=== PATIENT | female | born 1965 | race Caucasian/White ===

== ENCOUNTER 2017-05-03 19:57 | Emergency (ER) | payer MEDICAID ==
[~2017-05-03] VITALS: Ht 162.6 cm; Wt 93.8 kg
[2017-05-03] MEDS ORDERED: ZIPRASIDONE 20 MG INJ IM ONE ×2 (20:16→20:30)
[2017-05-03] MEDS ORDERED: DIPHENHYDRAMINE 50 MG/ML, 1ML ONE (20:16)
[2017-05-03] MEDS ORDERED: DIPHENHYDRAMINE 50 MG/ML, 1ML IM ONE (21:00)
[2017-05-03 21:39] LABS: BLOOD UREA NITROGEN 10 mg/dL (7-18)
[2017-05-03 21:45] LABS: ACETAMINOPHEN < 2 mcg/mL (10-30)
[2017-05-03 22:40] VITALS: BP 135/89
== END 2017-05-04 00:14 | disposition home or self-care (01) ==
LOC: ED 22:40
DX: S52.602A Unspecified fracture of lower end of left ulna, initial encounter for closed fracture (principal); F19.950 Other psychoactive substance use, unspecified with psychoactive substance-induced psychotic disorder with delusions; G31.2 Degeneration of nervous system due to alcohol; W17.89XA Other fall from one level to another, initial encounter; Y93.89 Activity, other specified; Y99.8 Other external cause status; Y92.009 Unspecified place in unspecified non-institutional (private) residence as the place of occurrence of the external cause
CPT/HCPCS: 29105; 36415; 70450; 73090; 80048; 80307; 80329; 82040; 84703; 85025; 96372; 99285; J1200; J3486; G0480

== ENCOUNTER 2017-08-29 09:08 | Observation (INO) | payer MEDICAID ==
[~2017-08-29] VITALS: Ht 162.6 cm; Wt 92.1 kg
[2017-08-29] MEDS ORDERED: SODIUM CHLORIDE FLUSH 10ML SYR IVF ONE (09:30)
[2017-08-29] MEDS ORDERED: ASPIRIN 81 MG TABLET CHEW PO ONE (09:30)
[2017-08-29] MEDS ORDERED: ONDANSETRON 2MG/ML, 2ML IVPush ONE (09:30)
[2017-08-29] MEDS ORDERED: LORazepam 2 MG/ML, 1ML IVPush ONE (09:30)
[2017-08-29] MEDS ORDERED: MORPHINE SULFATE 4 MG/ML, 1ML IVPush ONE (09:30)
[2017-08-29] MEDS ORDERED: PLEASE ENTER ALLERGIES MC SCH ×2 (09:30)
[2017-08-29] MEDS ORDERED: NITROGLYCERIN SINGLE TAB 0.4 MG SL ONE (09:41)
[2017-08-29] MEDS ORDERED: morphine SULFATE 10 MG/ML, 1ML ONE (09:42)
[2017-08-29] MEDS ORDERED: ONDANSETRON 2MG/ML, 2ML ONE (09:42)
[2017-08-29] MEDS ORDERED: LORazepam 2 MG/ML, 1ML ONE (09:43)
[2017-08-29] MEDS: NITROGLYCERIN SINGLE TAB 0.4 MG SL PRN ×3 (09:44→09:56)
[2017-08-29] MEDS ORDERED: ASPIRIN 81 MG TABLET CHEW ONE (09:47)
[2017-08-29 09:53] LABS: HEMATOCRIT 41.5 % (34.6-47.8); HEMOGLOBIN 13.9 g/dL (11.7-16.4); WHITE BLOOD COUNT 9.7 x10^3/uL (3.4-10)
[2017-08-29 10:01] LABS: ASPARTATE AMINO TRANSFERASE 41 U/L (15-37); BLOOD UREA NITROGEN 13 mg/dL (7-18)
[2017-08-29 10:09] LABS: IS PT STATUS REG ER OR PRE ER? YES
[2017-08-29] MEDS ORDERED: HYDR25TA11 PO (10:26)
[2017-08-29] MEDS ORDERED: SPIR25TA3 PO (10:26)
[2017-08-29] MEDS ORDERED: PROP20TA PO (10:26)
[2017-08-29] MEDS ORDERED: PARO10TA56 PO (10:26)
[2017-08-29] MEDS ORDERED: SODIUM CHLORIDE FLUSH 10ML SYR IVF PRN (11:30)
[2017-08-29] MEDS ORDERED: POTASSIUM CHLORIDE 20 MEQ, MAGNESIUM SULFATE 2 GM, THIAMINE 100 MG, MVI ADULT 10 ML, FO... IV SCH (11:41)
[2017-08-29] MEDS ORDERED: DOCUSATE 100 MG CAPSULE PO PRN (12:00)
[2017-08-29] MEDS ORDERED: ENALAPRILAT 1.25 MG/ML, 2ML IVPush PRN (12:00)
[2017-08-29] MEDS ORDERED: ONDANSETRON 2MG/ML, 2ML IVPush PRN (12:00)
[2017-08-29] MEDS ORDERED: morphine SULFATE 10 MG/ML, 1ML IVPush PRN (12:00)
[2017-08-29] MEDS ORDERED: BISACODYL 10 MG SUPP PR PRN (12:00)
[2017-08-29] MEDS ORDERED: ENOXAPARIN 40 MG/0.4 ML SQ SCH (12:00)
[2017-08-29] MEDS ORDERED: HYDROcodone/APAP 5/325 TABLET PO PRN (12:00)
[2017-08-29] MEDS ORDERED: LORazepam 2 MG/ML, 1ML IVPush PRN (12:00)
[2017-08-29] MEDS ORDERED: LABETALOL 5MG/ML, 20ML IVPush PRN (12:00)
[2017-08-29] MEDS ORDERED: POLYETHYLENE GLYCOL 17 GM PACKET PO PRN (12:00)
[2017-08-29] MEDS ORDERED: ACETAMINOPHEN 325 MG TABLET PO PRN (12:00)
[2017-08-29] MEDS ORDERED: PROPRANOLOL MC SCH (14:00)
[2017-08-29] MEDS ORDERED: SPIRONOLACTONE MC SCH (14:00)
[2017-08-29 14:18] VITALS: BP 175/118
[2017-08-29 15:25] LABS: IS PT STATUS REG ER OR PRE ER? NO
[2017-08-29 16:02] VITALS: BP 171/127
[2017-08-29] MEDS: BACLOFEN 10 MG TABLET PO SCH ×3 (16:18→20:03)
[2017-08-29 17:43] VITALS: BP 174/117
[2017-08-29 18:27] VITALS: BP 128/83
[2017-08-29] MEDS: PROPRANOLOL 20 MG TABLET PO SCH (20:04)
[2017-08-29] MEDS ORDERED: PROPRANOLOL 20 MG TABLET PO SCH (21:00)
[2017-08-29 21:46] LABS: IS PT STATUS REG ER OR PRE ER? NO
[2017-08-30 00:31] VITALS: BP 121/83
[2017-08-30] MEDS ORDERED: FLU VACC QS2017-18 (36MOS+) UP/PF 0.5 ML IM-VACC ONE (07:00)
[2017-08-30] MEDS ORDERED: REGADENOSON 0.4 MG/5 ML SYRINGE ONE (08:11)
[2017-08-30 08:29] VITALS: BP 164/96
[2017-08-30] MEDS ORDERED: SPIRONOLACTONE 25 MG TABLET PO SCH ×2 (09:00)
[2017-08-30] MEDS ORDERED: PAROXETINE 10 MG TABLET PO SCH (09:00)
[2017-08-30] MEDS: PROPRANOLOL 20 MG TABLET PO SCH (10:41)
[2017-08-30] MEDS: BACLOFEN 10 MG TABLET PO SCH (10:41)
[2017-08-30 14:02] VITALS: BP 142/94
== END 2017-08-30 16:25 | disposition home or self-care (01) ==
LOC: ED 10:45 → INTOOBSV 11:12 → EDIP 11:12 → 5SO 13:30
PROVIDERS: ADMIT Family Medicine; ATTEND Family Medicine
DX: R07.89 Other chest pain (principal); I11.9 Hypertensive heart disease without heart failure; F10.239 Alcohol dependence with withdrawal, unspecified; R74.0 Nonspecific elevation of levels of transaminase and lactic acid dehydrogenase [LDH]; Z82.49 Family history of ischemic heart disease and other diseases of the circulatory system; Z83.3 Family history of diabetes mellitus; Z87.891 Personal history of nicotine dependence; Z90.710 Acquired absence of both cervix and uterus
CPT/HCPCS: 36415; 71010; 78452; 80053; 84484; 85025; 85379; 93005; 93017; 93306; 96365; 96366; 96372; 96375; 99285; A9502; C9898; G0378; J1650; J2060; J2785; J3411; J3475; J3480; Q0177; J7042

== ENCOUNTER 2018-06-19 18:00 | Emergency (ER) | payer MEDICAID ==
[~2018-06-19] VITALS: Ht 162.6 cm; Wt 91.2 kg
[~2018-06-19 18:00] MED LIST: HYDR25TA11 PO; PARO10TA56 PO; PROP20TA PO; SPIR25TA5 PO
[2018-06-19] MEDS ORDERED: CEFAZOLIN PMX 1GM/50ML 50 ML IV ONE (18:30)
[2018-06-19] MEDS ORDERED: THIAMINE 100MG TABLET PO ONE (18:30)
[2018-06-19 18:52] LABS: BASOPHILS % (AUTO) 1 % (0-1); EOSINOPHILS # (AUTO) 0.24 x10^3/uL (0-0.4); EOSINOPHILS % (AUTO) 2 % (1-7); LYMPHOCYTES # (AUTO) 3.22 x10^3/uL (1-3.4); LYMPHOCYTES % (AUTO) 21 % (22-44); MD NO; MEAN CORPUSCULAR HEMOGLOBIN 31.7 pg (27.0-34.8); MEAN CORPUSCULAR HGB CONC 34.2 g/dL (32.4-35.8); MEAN CORPUSCULAR VOLUME 92.7 fL (80-100); MEAN PLATELET VOLUME 7.9 fL (7.4-10.4); MONOCYTES # (AUTO) 0.94 x10^3/uL (0.2-0.8); MONOCYTES % (AUTO) 6 % (2-9); NEUTROPHILS # (AUTO) 10.46 x10^3/uL (1.8-6.8); NEUTROPHILS % (AUTO) 70 % (42-75); PLATELET COUNT 356 x10^3/uL (130-400); RED BLOOD COUNT 4.23 x10^6/uL (3.82-5.3); RED CELL DISTRIBUTION WIDTH 14.3 % (9.6-15.2)
[2018-06-19 18:57] LABS: ALANINE AMINOTRANSFERASE 42 U/L (12-78); ALBUMIN 3.6 g/dL (3.4-5.0); ANION GAP 9 mmol/L (5-15); CALCIUM 8.3 mg/dL (8.5-10.1); CHLORIDE 100 mmol/L (98-107); CREATININE 0.63 mg/dL (0.55-1.02)
[2018-06-19 19:00] LABS: ALKALINE PHOSPHATASE 117 U/L (45-117); BILIRUBIN,TOTAL 0.3 mg/dL (0.2-1.0); TOTAL PROTEIN 8.2 g/dL (6.4-8.2)
[2018-06-19] MEDS ORDERED: CEPHALEXIN 500 MG CAPSULE PO ONE (19:00)
[2018-06-19] MEDS ORDERED: LIDOCAINE-MPF 1%, 5ML INFIL ONE (19:00)
[2018-06-19] MEDS ORDERED: SULFAMETH./TRIMETHOPRIM DS 800MG/160MG TABLET PO ONE (19:00)
[2018-06-19] MEDS ORDERED: LIDOCAINE-MPF 1%, 2ML ONE (19:01)
[2018-06-19] MEDS ORDERED: SULFAMETH./TRIMETHOPRIM DS 800MG/160MG TABLET ONE (19:01)
[2018-06-19] MEDS ORDERED: CEPHALEXIN 500 MG CAPSULE ONE (19:01)
[2018-06-19] MEDS ORDERED: THIAMINE 100MG TABLET ONE (19:35)
[2018-06-19] MEDS ORDERED: BACITRACIN ZINC OINT 500U/GM, 0.9 GM ONE (19:36)
[2018-06-19 20:14] VITALS: BP 145/92
== END 2018-06-19 20:16 | disposition home or self-care (01) ==
LOC: ED 20:00
DX: L03.116 Cellulitis of left lower limb (principal); L02.416 Cutaneous abscess of left lower limb; F10.10 Alcohol abuse, uncomplicated
CPT/HCPCS: 10061; 36415; 80053; 85025; 99284

== ENCOUNTER 2018-12-03 17:39 | Inpatient (IN) | payer MEDICAID ==
[~2018-12-03] VITALS: Ht 162.6 cm; Wt 91.1 kg
--- NOTE | 2018-12-03 17:59 | NUR ---
Pt presents for increasing RUQ pain today. Pt is 2 days s/p anthony at [facility] (on divert today). Pt states she had no issues yesterday or this morning. Pt states pain started while in grocery store today. Sudden onset. Increasing. Pt states pain goes up to her neck. Surgical incisions intact. No redness or drainage. Pt in pain. Received 4mg zofran and 100mcg fentanyl [employer].
[2018-12-03] MEDS ORDERED: FENTANYL PF 100 MCG/2ML IV ONE ×2 (18:30→22:00)
[2018-12-03] MEDS ORDERED: SODIUM CHLORIDE 0.9% 1,000ML IVBOLUS ONE (18:30)
[2018-12-03] MEDS ORDERED: ONDANSETRON 2MG/ML, 2ML IVPush ONE (18:30)
[2018-12-03] MEDS ORDERED: ONDANSETRON 2MG/ML, 2ML ONE (18:39)
[2018-12-03] MEDS ORDERED: FENTANYL PF 100 MCG/2ML ONE ×2 (18:40→21:56)
[2018-12-03 18:58] LABS: BASOPHILS % (AUTO) 1 % (0-1); EOSINOPHILS # (AUTO) 0.01 x10^3/uL (0-0.4); EOSINOPHILS % (AUTO) 0 % (1-7); LYMPHOCYTES # (AUTO) 0.97 x10^3/uL (1-3.4); LYMPHOCYTES % (AUTO) 7 % (22-44); MD NO; MEAN CORPUSCULAR HEMOGLOBIN 30.7 pg (27.0-34.8); MEAN CORPUSCULAR HGB CONC 33.6 g/dL (32.4-35.8); MEAN CORPUSCULAR VOLUME 91.3 fL (80-100); MEAN PLATELET VOLUME 8.8 fL (7.4-10.4); MONOCYTES # (AUTO) 0.45 x10^3/uL (0.2-0.8); MONOCYTES % (AUTO) 3 % (2-9); NEUTROPHILS # (AUTO) 12.32 x10^3/uL (1.8-6.8); NEUTROPHILS % (AUTO) 88 % (42-75); PLATELET COUNT 250 x10^3/uL (130-400); RED BLOOD COUNT 3.91 x10^6/uL (3.82-5.3); RED CELL DISTRIBUTION WIDTH 13.3 % (9.6-15.2)
--- NOTE | 2018-12-03 18:58 | NUR ---
PT OOB TO BSC WITH RN X 2 ASSIST. INCREASED PAIN WITH MOVEMENT. PT VOIDED W/O DIFFICULTY AND RTD TO BED WITH RN ASSIST. PT MED NOTED FOR ABD PAIN 10/10, IVF INFUSING W/O DIFFICULTY. VSS
[2018-12-03 19:05] LABS: INTERNATIONAL NORMALIZED RATIO 0.97 (0.93-1.1); PROTHROMBIN TIME 10.3 Seconds (9.6-11.5)
[2018-12-03 19:06] LABS: ALANINE AMINOTRANSFERASE 67 U/L (12-78); ALBUMIN 3.3 g/dL (3.4-5.0); ANION GAP 7 mmol/L (5-15); CALCIUM 8.4 mg/dL (8.5-10.1); CHLORIDE 103 mmol/L (98-107); CREATININE 0.74 mg/dL (0.55-1.02)
[2018-12-03 19:10] LABS: ALKALINE PHOSPHATASE 141 U/L (45-117); BILIRUBIN,TOTAL 0.6 mg/dL (0.2-1.0); TOTAL PROTEIN 7.4 g/dL (6.4-8.2)
[2018-12-03 19:11] LABS: MICROSCOPIC NOT IND
[2018-12-03 19:13] LABS: CULTURE INDICATED? NO
[2018-12-03] MEDS ORDERED: OMNIPAQUE 350 MG/ML, 100ML BOTTLE ONE (20:28)
[2018-12-03] MEDS ORDERED: PIPERACILLIN/TAZO/PMX 4.5GM 100 ML IV ONE (20:30)
[2018-12-03] MEDS ORDERED: LABETALOL 5MG/ML, 20ML IVPush PRN (22:30)
[2018-12-03] MEDS ORDERED: ONDANSETRON 2MG/ML, 2ML IVPush PRN (22:30)
[2018-12-03] MEDS ORDERED: GABAPENTIN 300 MG CAPSULE PO PRN (22:30)
[2018-12-03] MEDS ORDERED: morphine SULFATE 10 MG/ML, 1ML IVPush PRN (22:30)
[2018-12-03] MEDS ORDERED: POLYETHYLENE GLYCOL 17 GM PACKET PO PRN (22:30)
[2018-12-03] MEDS ORDERED: ONDANSETRON ODT 4 MG PO PRN (22:30)
[2018-12-03] MEDS ORDERED: PROMETHAZINE 25 MG/ML, 1ML IM PRN (22:30)
[2018-12-03] MEDS ORDERED: BISACODYL 10 MG SUPP PR PRN (22:30)
[2018-12-03] MEDS ORDERED: POTASSIUM CHLORIDE 40 MEQ in SODIUM CHLORIDE 0.9% 500 ML IV ONE (22:30)
[2018-12-03] MEDS ORDERED: hydrALAzine 20 MG/ML, 1ML IVPush PRN (22:30)
[2018-12-03 22:35] VITALS: BP 119/72
[2018-12-03 22:53] LABS: FREE T4 (FREE THYROXINE) 1.64 ng/dL (0.76-1.46); THYROID STIMULATING HORMONE 1.55 mIU/L (0.358-3.740)
[2018-12-03 23:04] LABS: HEMOGLOBIN A1C 5.3 % (4.2-6.3)
[2018-12-03] MEDS: SODIUM CHLORIDE 0.9% 1,000 ML IV SCH (23:07)
[2018-12-03] MEDS: OXYcodone IR 5MG TABLET PO PRN (23:08)
[2018-12-03] MEDS: HEPARIN 5,000 UNITS/ML, 1ML SQ SCH (23:18)
[2018-12-04] MEDS: OXYcodone IR 5MG TABLET PO PRN ×3 (03:44→19:53)
[2018-12-04 03:47] VITALS: BP 145/88
[2018-12-04 05:07] LABS: BASOPHILS # (AUTO) 0.06 x10^3/uL (0-0.1); BASOPHILS % (AUTO) 1 % (0-1); EOSINOPHILS % (AUTO) 0 % (1-7); LYMPHOCYTES # (AUTO) 0.91 x10^3/uL (1-3.4); LYMPHOCYTES % (AUTO) 8 % (22-44); MD NO; MEAN CORPUSCULAR VOLUME 91.3 fL (80-100); MEAN PLATELET VOLUME 8.5 fL (7.4-10.4); MONOCYTES # (AUTO) 0.41 x10^3/uL (0.2-0.8); MONOCYTES % (AUTO) 3 % (2-9); NEUTROPHILS # (AUTO) 10.55 x10^3/uL (1.8-6.8); NEUTROPHILS % (AUTO) 89 % (42-75); PLATELET COUNT 264 x10^3/uL (130-400); RED BLOOD COUNT 3.78 x10^6/uL (3.82-5.3); RED CELL DISTRIBUTION WIDTH 13.6 % (9.6-15.2)
[2018-12-04 05:21] LABS: ALANINE AMINOTRANSFERASE 53 U/L (12-78); ANION GAP 6 mmol/L (5-15); CALCIUM 8.4 mg/dL (8.5-10.1); CHLORIDE 105 mmol/L (98-107)
[2018-12-04 05:23] LABS: ALKALINE PHOSPHATASE 112 U/L (45-117); BILIRUBIN,TOTAL 0.5 mg/dL (0.2-1.0); CHOL/HDL RATIO 2.5; CHOLESTEROL, TOTAL 115 mg/dL (140-239); CREATININE 0.59 mg/dL (0.55-1.02); HDL CHOL % 40 % (28-40); HDL CHOLESTEROL (DIRECT) 46 mg/dL (40-60); LDL CHOLESTEROL,CALCULATED 53 mg/dL (54-169); LDL/HDL RATIO 1.2 (0.5-3.0); TOTAL PROTEIN 6.9 g/dL (6.4-8.2); TRIGLYCERIDES 78 mg/dL (50-200); VLDL CHOLESTEROL 16 mg/dL (0-25)
[2018-12-04] MEDS ORDERED: MAGNESIUM SULFATE PMX 2GM/50ML 50 ML IV ONE (07:00)
[2018-12-04] MEDS ORDERED: KETOROLAC 30 MG/1 ML ONE (07:58)
[2018-12-04] MEDS ORDERED: KETOROLAC 30 MG/1 ML IVPush SCH (08:00)
[2018-12-04] MEDS: HEPARIN 5,000 UNITS/ML, 1ML SQ SCH ×3 (08:09→19:53)
[2018-12-04] MEDS: SODIUM CHLORIDE 0.9% 1,000 ML IV SCH (08:10)
[2018-12-04] MEDS: SENNA/DOCUSATE TABLET PO SCH (08:10)
[2018-12-04 08:11] VITALS: BP 110/78
[2018-12-04] MEDS ORDERED: FENTANYL PF 100 MCG/2ML ONE (13:57)
[2018-12-04] MEDS ORDERED: PROPOFOL 10 MG/ML, 20ML ONE (14:17)
[2018-12-04] MEDS ORDERED: DEXAMETHASONE 4 MG/ML, 1ML ONE (14:17)
[2018-12-04] MEDS ORDERED: METOPROLOL 1 MG/ML, 5ML IV PRN (14:30)
[2018-12-04] MEDS ORDERED: MEPERIDINE/PF 25MG/0.5ML IVPush PRN (14:30)
[2018-12-04] MEDS ORDERED: OXYcodone 5 MG/5 ML ORAL.SOL UDC PO PRN (14:30)
[2018-12-04] MEDS ORDERED: HALOPERIDOL 5 MG/ML IV PRN (14:30)
[2018-12-04] MEDS ORDERED: PROMETHAZINE 25 MG/ML, 1ML IV PRN (14:30)
[2018-12-04] MEDS ORDERED: hydrALAzine 20 MG/ML, 1ML IV PRN (14:30)
[2018-12-04] MEDS ORDERED: DIPHENHYDRAMINE 50 MG/ML, 1ML IVPush PRN (14:30)
[2018-12-04] MEDS ORDERED: LABETALOL 5MG/ML, 20ML IV PRN (14:30)
[2018-12-04] MEDS ORDERED: HYDROmorphone 2 MG/ML, 1ML IVPush PRN (14:30)
[2018-12-04] MEDS ORDERED: KETOROLAC 30 MG/1 ML IVPush PRN (14:30)
[2018-12-04] MEDS ORDERED: PIPERACILLIN/TAZO/PMX 3.375GM 0 ML ONE (14:30)
[2018-12-04] MEDS ORDERED: PROCHLORPERAZINE 5 MG/ML, 2ML IV PRN (14:30)
[2018-12-04] MEDS ORDERED: FENTANYL PF 100 MCG/2ML IV PRN (14:30)
[2018-12-04] MEDS ORDERED: OMNIPAQUE 350 MG/ML, 50 ML BOTTLE ONE (15:05)
[2018-12-04] MEDS ORDERED: INDOMETHACIN 50 MG SUPP.RECT ONE (15:09)
[2018-12-04] MEDS ORDERED: INDOMETHACIN 50 MG SUPP.RECT PR ONE (15:30)
[2018-12-04 20:00] VITALS: BP 98/63
[2018-12-05 02:00] VITALS: BP 114/68
[2018-12-05] MEDS: PIPERACILLIN/TAZO/PMX 3.375GM 50 ML IV SCH ×3 (03:17→15:29)
[2018-12-05 04:57] LABS: BASOPHILS # (AUTO) 0.03 x10^3/uL (0-0.1); BASOPHILS % (AUTO) 1 % (0-1); EOSINOPHILS # (AUTO) 0.06 x10^3/uL (0-0.4); EOSINOPHILS % (AUTO) 1 % (1-7); LYMPHOCYTES # (AUTO) 1.13 x10^3/uL (1-3.4); LYMPHOCYTES % (AUTO) 16 % (22-44); MD NO; MEAN CORPUSCULAR HEMOGLOBIN 30.8 pg (27.0-34.8); MEAN CORPUSCULAR HGB CONC 33.7 g/dL (32.4-35.8); MEAN CORPUSCULAR VOLUME 91.4 fL (80-100); MEAN PLATELET VOLUME 8.7 fL (7.4-10.4); MONOCYTES % (AUTO) 7 % (2-9); NEUTROPHILS # (AUTO) 5.25 x10^3/uL (1.8-6.8); NEUTROPHILS % (AUTO) 75 % (42-75); PLATELET COUNT 222 x10^3/uL (130-400); RED CELL DISTRIBUTION WIDTH 13.4 % (9.6-15.2)
[2018-12-05 05:00] LABS: CHLORIDE 107 mmol/L (98-107)
[2018-12-05 05:09] LABS: ALANINE AMINOTRANSFERASE 35 U/L (12-78); ALBUMIN 2.3 g/dL (3.4-5.0); ALKALINE PHOSPHATASE 98 U/L (45-117); ANION GAP 6 mmol/L (5-15); BILIRUBIN,TOTAL 0.6 mg/dL (0.2-1.0); CALCIUM 7.9 mg/dL (8.5-10.1); TOTAL PROTEIN 5.9 g/dL (6.4-8.2)
[2018-12-05 08:24] VITALS: BP 117/81
[2018-12-05] MEDS: SENNA/DOCUSATE TABLET PO SCH (09:27)
[2018-12-05 14:55] VITALS: BP 115/76
== END 2018-12-05 18:30 | disposition home or self-care (01) | DRG 394 ==
LOC: ED 18:23 → EDIP 21:16 → OBSVTOIN 21:16 → 3NW 22:29
PROVIDERS: ADMIT Internal Medicine; ATTEND Internal Medicine
PROC: BF131ZZ Fluoroscopy of Gallbladder and Bile Ducts using Low Osmolar Contrast (ICD-10-PCS; 2018-12-04)
PROC: 0F798DZ Dilation of Common Bile Duct with Intraluminal Device, Via Natural or Artificial Opening Endoscopic (ICD-10-PCS; principal; 2018-12-04 14:00)
DX: K91.89 Other postprocedural complications and disorders of digestive system (principal); J98.11 Atelectasis; R18.8 Other ascites; Y92.89 Other specified places as the place of occurrence of the external cause; B19.20 Unspecified viral hepatitis C without hepatic coma; E87.6 Hypokalemia; F32.9 Major depressive disorder, single episode, unspecified; F41.9 Anxiety disorder, unspecified; I10 Essential (primary) hypertension; K59.00 Constipation, unspecified; Z90.710 Acquired absence of both cervix and uterus; Y83.6 Removal of other organ (partial) (total) as the cause of abnormal reaction of the patient, or of later complication, without mention of misadventure at the time of the procedure
CPT/HCPCS: 36415; 71045; 71275; 74177; 74328; 78226; 80053; 80061; 81003; 83036; 83605; 83690; 83735; 84145; 84439; 84443; 85025; 85610; 85730; 87040; 93005; 96365; 96375; 96376; G0378; J1100; J1644; J1885; J2405; J2543; J2704; J3010; J3480; Q0162; Q9967; A9537; C1769; C1894; C2625; C9898; J2270; J3475; J7030; J7040